=== PATIENT | male | born 1965 | race Two or more races ===

== ENCOUNTER 2024-04-03 09:48 | Inpatient (IN) | payer OTHER ==
[~2024-04-03] VITALS: Ht 170.2 cm; Wt 72.6 kg
[2024-04-03 10:36] LABS: HEMOGLOBIN 14.6 g/dL (13-16.00); MEAN CELL VOLUME 84.3 fL (80.0-100.00); MEAN CORPUSCULAR HEMOGLOBIN 29.3 pg (27.00-32.0); MEAN CORPUSCULAR HGB CONC 34.8 g/dl (32.0-36.0); PLATELET COUNT 205 K/uL (150-450); RED BLOOD COUNT 4.98 M/uL (4.00-6.00); RED CELL DISTRIBUTION WIDTH 13.8 % (11.5-14.5)
[2024-04-03 10:46] LABS: URINE APPEARANCE Clear; URINE BILIRRUBIN Negative (NEGATIVE); URINE BLOOD NHT; URINE COLOR Yellow; URINE GLUCOSE Negative (NEGATIVE); URINE KETONE Negative (NEGATIVE); URINE LEUKOCYTE Negative; URINE NITRATE Negative; URINE PROTEIN Negative (NEGATIVE); URINE UROBILINOGEN 0.2 E.U./dl
[2024-04-03 10:49] LABS: URINE BACTERIA 13.8 uL (0.0-1933); URINE RBC 13.4 uL (0.0-20.8)
[2024-04-03 10:54] LABS: URINE EPITHELIAL CELLS 1.2 uL (0.0-38.8)
[2024-04-03 11:07] LABS: INR 1.01; PARTIAL THROMBOPLASTIN TIME 28.2 SECONDS (22.0-34.0)
[2024-04-03 11:14] VITALS: BP 126/90
[2024-04-03] MEDS ORDERED: LOSARTAN POTAS100 MG (11:21)
[2024-04-03 11:46] LABS: ALBUMIN 4.2 gm/dL (3.4-5.0); BILIRUBIN TOTAL 0.8 mg/dL (0.3-1.2); CALCIUM 9.7 mg/dL (8.5-10.1); CREATININE SERUM 2.01 mg/dL (0.70-1.30); GFR 34.53; GLOBULINA 3.4 G/DL (2.4-3.5); POTASSIUM 3.76 mEq/L (3.5-5.1); TOTAL PROTEIN 7.6 gm/dL (6.4-8.2)
[2024-04-03 13:04] LABS: RH POSITIVE
[2024-04-12] MEDS ORDERED: LOSARTAN-HCTZ1 EAC2 (08:17)
[2024-04-12] MEDS ORDERED: TAMSULOSIN HCL0.4 MG (08:17)
[2024-04-12] MEDS ORDERED: BUPIVACAINE HCL 30 ML VIAL IJ ONE (09:00)
[2024-04-12] MEDS ORDERED: SURGIFLO APPLICATOR 1 EACH APPL TOP ONE (09:00)
[2024-04-12] MEDS ORDERED: CEFAZOLIN SODIUM 1,000 MG in 0.9 % SODIUM CHLORIDE 50 ML IV ONE (09:00)
[2024-04-12] MEDS ORDERED: ENOXAPARIN SODIUM 40 MG/0.4 ML SYRINGE SUBCUTANEO ONE (09:00)
[2024-04-12] MEDS ORDERED: HEMOSTATIC MATRIX 1 KIT KIT TOP ONE (09:00)
[2024-04-12] MEDS ORDERED: SUGAMMADEX SODIUM 200 MG/2 ML VIAL IV ONE (13:00)
[2024-04-12] MEDS ORDERED: OxyCODONE HCL/APAP UD (PERCOCET) PO PRN (13:15)
[2024-04-12] MEDS ORDERED: RINGERS SOLUTION,LACTATED 1,000 ML IV SCH (13:15)
[2024-04-12] MEDS ORDERED: ONDANSETRON HCL 2 MG/ML VIAL IV PRN (13:15)
[2024-04-12] MEDS ORDERED: LOSARTAN POTASSIUM 100 MG TABLET PO SCH (13:19)
[2024-04-12 16:00] VITALS: BP 126/90; O2SAT 97
[2024-04-12] MEDS ORDERED: KETOROLAC TROMETHAMINE 30 MG VIAL IV SCH (17:00)
[2024-04-12] MEDS ORDERED: POLYETHYLENE GLYCOL 3350 17 GM BLIST.PACK PO SCH (17:00)
[2024-04-12] MEDS ORDERED: GABAPENTIN 300 MG CAPSULE PO SCH (17:00)
[2024-04-12] MEDS ORDERED: CEFAZOLIN SODIUM 1,000 MG VIAL IV SCH (18:00)
[2024-04-12] MEDS ORDERED: FAMOTIDINE/PF 20 MG/2 ML VIAL IV SCH (21:00)
[2024-04-13 01:57] VITALS: BP 127/75; O2SAT 96
[2024-04-13 06:16] LABS: HEMATOCRIT 36.4 % (39.0-48.0); HEMOGLOBIN 12.7 g/dL (13-16.00); MEAN CELL VOLUME 83.6 fL (80.0-100.00); MEAN CORPUSCULAR HEMOGLOBIN 29.2 pg (27.00-32.0); PLATELET COUNT 216 K/uL (150-450); RED BLOOD COUNT 4.35 M/uL (4.00-6.00); RED CELL DISTRIBUTION WIDTH 13.5 % (11.5-14.5)
[2024-04-13 07:06] LABS: ALBUMIN 3.1 gm/dL (3.4-5.0); CALCIUM 8.8 mg/dL (8.5-10.1); CREATININE SERUM 2.25 mg/dL (0.70-1.30); GFR 30.32; PHOSPHOROUS 4.3 mg/dL (2.5-4.9); POTASSIUM 4.39 mEq/L (3.5-5.1)
[2024-04-13] MEDS ORDERED: ENOXAPARIN SODIUM 40 MG/0.4 ML SYRINGE SUBCUTANEO SCH (09:00)
== END 2024-04-13 09:59 | disposition home or self-care (01) | DRG 708 ==
LOC: O/R 04-12 05:45 → SURG 04-12 07:00 → O/R 04-12 13:37 → SURG 04-12 14:53
PROVIDERS: ADMIT Urology; ATTEND Urology
PROC: 07BC4ZZ Excision of Pelvis Lymphatic, Percutaneous Endoscopic Approach (ICD-10-PCS; 2024-04-12)
PROC: 8E0W4CZ Robotic Assisted Procedure of Trunk Region, Percutaneous Endoscopic Approach (ICD-10-PCS; 2024-04-12)
PROC: 0VT04ZZ Resection of Prostate, Percutaneous Endoscopic Approach (ICD-10-PCS; principal; 2024-04-12 07:00)
DX: C61 Malignant neoplasm of prostate (principal); Z20.822 Contact with and (suspected) exposure to COVID-19